=== PATIENT | male | born 1985 | race Caucasian/White ===

== ENCOUNTER 2018-03-03 10:53 | Day surgery (SDC) | payer BC, MEDICAID ==
[~2018-03-03 10:53] MED LIST: Lactated Ringers 1,000 ML IV SCH; Lidocaine 1%/Sod Bicarbonate in NS 8.4% 1 ML Syringe IDERM PRN; Sodium Chloride 0.9% 10 ML Syringe FLUSH PRN
--- NOTE | 2018-03-03 13:05 | PCM.PREANE ---
Preanesthetic Assessment - Anesthesia/Transfusion/Family Hx Anesthesia History: Prior Anesthesia Without Reaction Family History of Anesthesia Reaction: No Transfusion History: No Prior Transfusion(s) - Review of Systems General: No Symptoms Pulmonary: No Symptoms, Other (Smokes a cigar once a month. Snores at night. ) Cardiovascular: Other (Hypertension) Gastrointestinal: Other (Occasional heart burn) Neurological: No Symptoms Other: Reports: Anxiety - Physical Assessment NPO Status Date: 03/02/18 NPO Status Time: 00:01 O2 Sat by Pulse Oximetry: 97 Respiratory Rate: 20 Vital Signs: Last Vital Signs Temp 36.9 C 03/03/18 11:10 Pulse Resp 20 03/03/18 11:10 BP 162/106 H 03/03/18 11:10 Pulse Ox 97 03/03/18 11:10 Height: 1.75 m Weight: 135.624 kg ASA Class: 2 Mental Status: Alert & Oriented x3 Airway Class: Mallampati = 3 Dentition: Reports: Normal Dentition Thyro-Mental Finger Breadths: 3 Mouth Opening Finger Breadths: 3 ROM/Head Extension: Full Lungs: Clear to Auscultation, Normal Respiratory Effort Cardiovascular: Regular Rate, Regular Rhythm - Lab Values: Laboratory Last Values MRSA (PCR) Negative 02/28/18 15:40 - Allergies Allergies/Adverse Reactions: Allergies Allergy/AdvReac Type Severity Reaction Status Date / Time No Known Allergies Allergy Verified 03/03/18 12:30 - Acknowledgements Anesthesia Type Planned: General Anesthesia Pt an Appropriate Candidate for the Planned Anesthesia: Yes Alternatives and Risks of Anesthesia Discussed w Pt/Guardian: Yes Pt/Guardian Understands and Agrees with Anesthesia Plan: Yes PreAnesthesia Questionnaire HEENT History: Gastrointestinal History: Reports: Gastritis Psychiatric History: Reports: Anxiety Dermatologic History: Reports: Urticaria Other Dermatologic History: left lower leg - Past Surgical History Other HEENT Surgeries/Procedures: wisdom teeth - SUBSTANCE USE Smoking Status *Q: Current Some Day Smoker Tobacco Use Within Last Twelve Months: Cigars Recreational Drug Use History: No - HOME MEDS Home Medications: Home Meds Lisinopril/Hydrochlorothiazide [Lisinopril-Hctz 20-25 mg Tab] 1 tab PO DAILY 06/20 [History] atorvaSTATin Calcium [Lipitor] 20 mg PO DAILY 03/03/18 [History] - CURRENT (IN HOUSE) MEDS Current Meds: Current Medications Lactated Ringer's (Ringers, Lactated) 1,000 mls @ 125 mls/hr IV ASDIRECTED YUMIKO Stop: 03/03/18 23:00 Lidocaine/Sodium Bicarbonate (Buffered Lidocaine 1% In Ns 8.4%) 0.25 ml IDERM ONETIME PRN PRN Reason: Prior to IV Start Stop: 03/03/18 18:00 Sodium Chloride (Saline Flush) 10 ml FLUSH ASDIRECTED PRN PRN Reason: Keep Vein Open Stop: 03/03/18 18:00
[2018-03-03] MEDS ORDERED: Midazolam 1 MG/ML 2 ML SDV ONE (13:19)
[2018-03-03] MEDS ORDERED: Ondansetron 4 MG/2 ML SDV ONE (13:19)
[2018-03-03] MEDS ORDERED: Propofol 200 MG/20 ML SDV ONE ×2 (13:19→13:55)
[2018-03-03] MEDS ORDERED: Lidocaine 1% 4 ML ONE (13:19)
[2018-03-03] MEDS ORDERED: fentaNYL 250 MCG/5 ML SDV ONE (13:19)
[2018-03-03] MEDS ORDERED: Bupivacaine 0.25% 30 ML SDV ONE (13:27)
[2018-03-03] MEDS ORDERED: ceFAZolin 1 GM Vial ONE (13:57)
[2018-03-03] MEDS ORDERED: Ketorolac 30 MG/ML SDV ONE (15:07)
[2018-03-03] MEDS ORDERED: Ondansetron 4 MG/2 ML SDV IVPUSH PRN (15:27)
[2018-03-03] MEDS ORDERED: fentaNYL 100 MCG/2 ML SDV IVPUSH PRN (15:27)
[2018-03-03] MEDS ORDERED: HYDROmorphone 0.5 MG/0.5 ML SYRINGE IVPUSH PRN (15:27)
--- NOTE | 2018-03-03 15:27 | PCM.POSTAN ---
POST ANESTHESIA ASSESSMENT - MENTAL STATUS Mental Status: Alert, Oriented - VITAL SIGNS Pulse Rate: 121 SaO2: 96 Resp Rate: 16 Blood Pressure: 135/67 Temperature: 36.8 C - RESPIRATORY Respiratory Status: Respiratory Rate WNL, Airway Patent, O2 Saturation Stable, Supplemental Oxygen - CARDIOVASCULAR CV Status: Pulse Rate WNL, Blood Pressure Stable - GASTROINTESTINAL GI Status: No Symptoms - PAIN Pain Score: 0 - POST OP HYDRATION Hydration Status: Adequate & Stable
[2018-03-03] MEDS ORDERED: Acetaminophen 325 MG Tab PO ONE (16:00)
--- NOTE | 2018-03-06 13:18 | CR ---
Left hand: 9 fluoroscopic spot views were obtained of the left hand centered to the carpometacarpal junction. Comparison: Previous CT left wrist exam of 02/28/18 and left hand radiographic study of 02/28/18. Previous dislocated carpometacarpal joint of the third digit shows evidence of reduction with placement of three pins crossing the fracture. Fluoroscopy time is given as 91.8 seconds. Impression: 1. Reduction and fixation of previous dislocation. Diagnostic code #2
--- NOTE | 2018-03-10 09:41 | PCM.OPNOTE ---
- General Post-Op/Procedure Note Date of Surgery/Procedure: 03/03/18 Operative Procedure(s): closed reduction with percutaneous pinning of left third carpometacarpal joint dislocation Pre Op Diagnosis: left third carpometacarpal joint dislocation Post-Op Diagnosis: Same Anesthesia Technique: General LMA, Local Primary Surgeon: Man Jeffers Anesthesia Provider: Haley Parson Asset Management Analyst: Marcy Santiago EBL in mLs: 5 Complications: None Condition: Good
--- NOTE | 2018-03-10 10:10 | OR ---
DATE OF OPERATION: 03/03/2018 SURGEON: Man Jeffers MD OPERATION PERFORMED: Closed reduction and percutaneous pinning of left third carpometacarpal joint dislocation. PREOPERATIVE DIAGNOSIS: Left third carpometacarpal joint dislocation. POSTOPERATIVE DIAGNOSIS: Left third carpometacarpal joint dislocation. ANESTHESIA: General LMA with local. ANESTHESIA PROVIDER: Haley Parson. BICYCLE MESSENGER: Marcy Santiago PA-C. ESTIMATED BLOOD LOSS: 5 mL. COMPLICATIONS: None. CONDITION: Stable. DESCRIPTION OF PROCEDURE: The patient was identified in the preoperative holding area. Proper site was marked and identified by the surgeon. The patient was taken back to the operative theater, where after adequate anesthesia, the patient's left upper extremity was sterilely prepped and draped in the usual sterile fashion. OR time-out was performed. The patient received 2 g IV Ancef. At this time, we did not utilize the tourniquet as it was going to be a closed reduction. C-arm fluoroscopy was utilized and was found that it could be close reduced at this time. It was drifting both radially as well as shortening of the third carpometacarpal joint. At this time, a closed reduction was performed. I did place two 0.049 K-wires in a retrograde fashion through the third metacarpal on both the radial and ulnar side. These were brought down to the joint line and then were drilled into the capitate. Once it was completely reduced at this time, I did also place a 0.049 K-wire from the second metacarpal into the third metacarpal to better stabilize it at this point as well. It was found to have adequate fixation on both AP and lateral views with druze of the joint with no signs of instability of the other carpometacarpal joints. At this time, all the pins were bent and cut. Jurgan balls were placed, and the patient was placed in a sterile soft dressing as well as the volar slab splint and sent to the PACU in stable condition. BYRON /[id number]
== END 2018-03-03 17:05 | disposition home or self-care (01) ==
LOC: JD.SDS 10:53
PROVIDERS: ATTEND Orthopaedic Surgery
DX: S63.055A Dislocation of other carpometacarpal joint of left hand, initial encounter (principal); I10 Essential (primary) hypertension; F17.290 Nicotine dependence, other tobacco product, uncomplicated; E78.2 Mixed hyperlipidemia; F41.9 Anxiety disorder, unspecified; V89.2XXA Person injured in unspecified motor-vehicle accident, traffic, initial encounter
CPT/HCPCS: 01820; 76000; 76000-26; 87641; A9270-GY; C1713; C1769; J0690; J1885; J2001; J2250; J2405; J2704; J3010; J3490; J7120